=== PATIENT | male | born 1990 | race African-American/Black ===

== ENCOUNTER 2025-03-20 15:03 | Emergency (ER) | payer MEDICAID, OTHER ==
[~2025-03-20] VITALS: Ht 165.1 cm; Wt 57.0 kg
[2025-03-20 15:15] VITALS: O2SAT 98
[2025-03-20 15:54] LABS: CLARITY URINE CLOUDY (CLEAR); COLOR URINE YELLOW (YELLOW); GLUCOSE URINE NEGATIVE (NEGATIVE); KETONES URINE NEGATIVE (NEGATIVE); LEUKOCYTE ESTERASE URINE 3+ (NEGATIVE); NITRITE URINE NEGATIVE (NEGATIVE); OCCULT BLOOD URINE 1+ (NEGATIVE); PROTEIN URINE TRACE (NEGATIVE); SPECIFIC GRAVITY URINE 1.003 (1.005-1.030); UROBILINOGEN URINE 0.2 E.U./dL (0.2-1.0)
[2025-03-20] MEDS ORDERED: CEFD300C3 MT (16:02)
[2025-03-20 16:11] LABS: BACTERIA URINE 2+; SQUAMOUS EPITHELIAL CELL URINE 1+ /lpf (RARE/1+); WBC URINE TNTC /hpf (0-2)
[2025-03-20 16:15] VITALS: BP 113/80; PULSE 90; RESP 14; TEMP 37; O2SAT 98
== END 2025-03-20 16:25 | disposition home or self-care (01) ==
LOC: ER 15:03
DX: N39.0 Urinary tract infection, site not specified (principal)
CPT/HCPCS: 81003; 87077; 87186; 99283

== ENCOUNTER 2025-05-09 14:16 | Emergency (ER) | payer OTHER ==
[~2025-05-09] VITALS: Ht 167.6 cm; Wt 66.0 kg
[~2025-05-09 14:16] MED LIST: CEFD300C3 MT
[2025-05-09 14:24] VITALS: BP 110/78; PULSE 82; RESP 16; TEMP 36.7; O2SAT 99
== END 2025-05-09 16:38 | disposition left against medical advice (07) ==
LOC: ER 14:25
DX: Z00.8 Encounter for other general examination (principal); Z53.21 Procedure and treatment not carried out due to patient leaving prior to being seen by health care provider; Z98.890 Other specified postprocedural states

== ENCOUNTER 2025-05-09 22:13 | Emergency (ER) | payer OTHER ==
[~2025-05-09] VITALS: Ht 170.2 cm; Wt 60.0 kg
[2025-05-09 22:26] VITALS: TEMP 36.8; O2SAT 99
[2025-05-09 23:51] LABS: CLARITY URINE CLOUDY (CLEAR); COLOR URINE YELLOW (YELLOW); GLUCOSE URINE NEGATIVE (NEGATIVE); KETONES URINE NEGATIVE (NEGATIVE); LEUKOCYTE ESTERASE URINE 3+ (NEGATIVE); NITRITE URINE POSITIVE (NEGATIVE); OCCULT BLOOD URINE 2+ (NEGATIVE); PH URINE 7.0 (4.5-8.0); PROTEIN URINE 3+ (NEGATIVE); SPECIFIC GRAVITY URINE 1.010 (1.005-1.030); UROBILINOGEN URINE 0.2 E.U./dL (0.2-1.0)
[2025-05-10 00:02] VITALS: BP 126/86; PULSE 74; RESP 12; O2SAT 98
[2025-05-10 03:43] LABS: WBC URINE TNTC /hpf (0-2)
[2025-05-10 03:44] LABS: RBC URINE 15-25 /hpf (0-2)
[2025-05-10 03:46] LABS: BACTERIA URINE 3+; SQUAMOUS EPITHELIAL CELL URINE NONE SEEN /lpf (RARE/1+)
== END 2025-05-10 00:10 | disposition home or self-care (01) ==
LOC: ER 22:13
DX: Z46.6 Encounter for fitting and adjustment of urinary device (principal); G82.20 Paraplegia, unspecified; Z98.890 Other specified postprocedural states
CPT/HCPCS: 81003; 99283